=== PATIENT | male | born 1960 | race American Indian/Alaskan Native ===

== ENCOUNTER 2021-04-16 11:01 | Emergency (ER) | payer OTHER ==
[2021-04-16 13:53] LABS: Basophils % (Auto) 0.8 % (0.0-1.8); Eosinophils % (Auto) 0.8 % (0.0-4.3); Hematocrit 38.3 % (35.5-45.6); Hemoglobin 13.4 gm/dl (11.8-15.2); Lymphocytes # (Auto) 1.3 K/mm3 (1.2-5.4); Mean Corpuscular HGB Conc 35 % (32-34); Mean Corpuscular Volume 95 fl (84-94); Monocytes # (Auto) 0.4 K/mm3 (0.0-0.8); Monocytes % (Auto) 10.5 % (0.0-7.3); Platelet Count 218 K/mm3 (140-440); Red Blood Count 4.02 M/mm3 (3.65-5.03); Red Cell Distribution Width 12.5 % (13.2-15.2)
[2021-04-16 14:03] LABS: INR 0.9 (0.87-1.13); Thrombin Time 16.5 Sec. (15.1-19.6)
[2021-04-16 14:04] LABS: Partial Thromboplastin Time 33.7 Sec. (24.2-36.6)
[2021-04-16 14:22] LABS: Alanine Aminotransferase 17 units/L (7-56); Albumin 4.4 g/dL (3.9-5); BUN/Creatinine Ratio 10; Blood Urea Nitrogen 11 mg/dL (9-20); Calcium 9.7 mg/dL (8.4-10.2); Creatine Kinase MB 4.8 ng/mL (0.0-4.0); Hemolysis Index 17
--- NOTE | 2021-04-16 14:42 | Cat Scan Report ---
CT HEAD WITHOUT CONTRAST INDICATION / CLINICAL INFORMATION: Stroke symptoms. TECHNIQUE: All CT scans at this location are performed using CT dose reduction for ALARA by means of automated e xposure control. COMPARISON: None available. FINDINGS: HEMORRHAGE: No evidence of intracranial hemorrhage or extra-axial fluid collection. EXTRA-AXIAL SPACES: Cortical sulci, sylvian fissures and basilar cisterns have an unremarkable appear ance. VENTRICULAR SYSTEM: The third and lateral ventricles are of normal size and configuration. CEREBRAL PARENCHYMA: No areas of abnormal brain parenchymal attenuation are identified. There is no i ndication of recent infarction. MIDLINE SHIFT OR HERNIATION: There is no mass effect. CEREBELLUM / BRAINSTEM: Brainstem and cerebellum have an unremarkable appearance. MIDLINE STRUCTURES:No abnormalities of the pituitary gland or pineal region are identified. INTRACRANIAL VESSELS:No abnormalities are identified on this noncontrast head CT. ORBITS: visualized portions of the orbits have an unremarkable appearance. SOFT TISSUES of HEAD: No significant abnormality. CALVARIUM: Evaluation of bone windows reveals no abnormalities. PARANASAL SINUSES / MASTOID AIR CELLS: Visualized portions of the paranasal sinuses are free from inf lammatory mucosal disease. Mastoid air cells are normally pneumatized. IMPRESSION: 1. No acute intracranial abnormality identified on head CT without contrast.. Signer Name: Avila Blackman MD Signed: 04/16/2021 2:38 PM Workstation Name: [id number]
--- NOTE | 2021-04-16 15:00 | Emergency Department Report ---
ED Neuro Deficit HPI - General Chief Complaint: Neuro Symptoms/Deficit Stated Complaint: BLOOD PRESSURE/LT PAIN FACE Time Seen by Provider: 04/16/21 13:11 Source: patient Mode of arrival: Ambulatory Limitations: No Limitations - History of Present Illness Initial Comments: 61-year-old male with a past medical history of hypertension presents to the hospital complaining of numbness to the right side of his face and right arm that started at 7 PM after eating spicy food. Patient initially thought it was secondary to spicy food but symptoms persist upon waking this morning. Patient came to the ER to have be evaluated and was surprised to see his blood pressure significantly elevated. BP on arrival 240/136. Patient has a history of hypertension but stopped taking medications at least 5 years ago. He has been taking garlic for blood pressure control assuming that it was effective since he has been asymptomatic. He denies headache, chest pain, shortness of breath, slurred speech, or difficulty ambulating. Currently he complains of just pe rsistent tingling to a small portion of his right lower face and his right fingertips. - Related Data Home Medications: Previous Rx's Medication Instructions Recorded Last Taken Type NIFEdipine [Nifedipine ER] 30 mg PO DAILY #30 tab 04/16/21 Unknown Rx Allergies/Adverse Reactions: Allergies Allergy/AdvReac Type Severity Reaction Status Date / Time No Known Allergies Allergy Unverified 04/16/21 12:10 ED Review of Systems ROS: Stated complaint: BLOOD PRESSURE/LT PAIN FACE Other details as noted in HPI Comment: All other systems reviewed and negative ED Past Medical Hx - Past Medical History Hx Hypertension: Yes - Medications Home Medications: Home Medications Medication Instructions Recorded Confirmed Last Taken Type NIFEdipine [Nifedipine ER] 30 mg PO DAILY #30 tab 04/16/21 Unknown Rx ED Neuro Physical Exam - General Limitations: No Limitations Suspected Stroke: Yes - NIHSS Assessment Interval: Baseline 1a. Level of Consciousness: alert/keenly responsive 1b. LOC Questions: answers both correctly 1c. LOC Commands: performs tasks correctly 2. Best Gaze: normal 3. Visual: no visual loss 4. Facial Palsy: normal symmetrical movement 5b. Motor Arm Right: no drift 5a. Motor Arm Left: no drift 6a. Motor Leg Left: no drift 6b. Motor Leg Right: no drift 7. Limb Ataxia: absent 8. Sensory: normal 9. Best Language: no aphasia 10. Dysarthria: normal 11. Extinction/Inattention: no abnormality Total Score: 0 Stroke Severity: No Stroke Symptoms - Other Other exam information: General: No acute distress Head: Atraumatic Eyes: normal appearance ENT: Moist mucous membranes Neck: Normal appearance, no midline tenderness Chest: Clear to auscultation bilaterally CV: Regular rate and rhythm Abdomen: Soft, normal bowel sounds, nontender, nondistended, no rebound or guarding Back: Normal inspection Extremity: Normal inspection, full range of motion Neuro: Alert O x 3, no facial asymmetry, speech clear, no gross motor sensory deficit Psych: Appropriate behavior Skin: No rash ED Course Vital Signs 04/16/21 04/16/21 04/16/21 12:18 12:48 13:01 Temperature 98.4 F Pulse Rate 72 77 Respiratory 20 19 Rate Blood Pressure 215/124 Blood Pressure 240/136 [Right] O2 Sat by Pulse 100 98 99 Oximetry 04/16/21 04/16/21 04/16/21 13:15 13:31 13:45 Temperature Pulse Rate 79 77 75 Respiratory 11 L 13 9 L Rate Blood Pressure 215/124 208/114 208/114 Blood Pressure [Right] O2 Sat by Pulse 99 92 100 Oximetry 04/16/21 04/16/21 04/16/21 14:01 14:15 14:31 Temperature Pulse Rate 61 62 73 Respiratory 18 18 26 H Rate Blood Pressure 186/112 186/112 186/112 Blood Pressure [Right] O2 Sat by Pulse 100 100 100 Oximetry 04/16/21 04/16/21 04/16/21 14:45 15:00 15:17 Temperature Pulse Rate 60 65 68 Respiratory 14 18 13 Rate Blood Pressure 186/112 202/102 201/118 Blood Pressure [Right] O2 Sat by Pulse 98 98 91 Oximetry 04/16/21 04/16/21 04/16/21 15:31 15:45 16:01 Temperature Pulse Rate 61 59 L 58 L Respiratory 14 19 17 Rate Blood Pressure 196/108 202/112 190/115 Blood Pressure [Right] O2 Sat by Pulse 98 100 99 Oximetry 04/16/21 04/16/21 04/16/21 16:15 16:31 16:45 Temperature Pulse Rate 69 61 60 Respiratory 13 18 21 Rate Blood Pressure 205/118 196/110 196/110 Blood Pressure [Right] O2 Sat by Pulse 86 98 99 Oximetry 04/16/21 04/16/2104/16/22 17:01 17:15 17:31 Temperature Pulse Rate 62 67 71 Respiratory 16 19 16 Rate Blood Pressure 194/110 194/110 184/110 Blood Pressure [Right] O2 Sat by Pulse 98 97 90 Oximetry 04/16/21 04/16/21 17:45 18:01 Temperature Pulse Rate 64 63 Respiratory 18 17 Rate Blood Pressure 184/110 189/109 Blood Pressure [Right] O2 Sat by Pulse 99 98 Oximetry - Lab Data Result diagrams: 04/16/21 13:22 04/16/21 13: Lab Results 04/16/21 04/16/21 04/16/21 Range/Units 13:22 13: 13: WBC 3.9 L (4.5-11.0) K/mm3 RBC 4.02 (3.65-5.03) M/mm3 Hgb 13.4 (11.8-15.2) gm/dl Hct 38.3 (35.5-45.6) % MCV 95 H (84-94) fl MCH 33 H (28-32) pg MCHC 35 H (32-34) % RDW 12.5 L (13.2-15.2) % Plt Count 218 (140-440) K/mm3 Lymph % (Auto) 33.0 (13.4-35.0) % [place] % (Auto) 10.5 H (0.0-7.3) % Eos % (Auto) 0.8 (0.0-4.3) % Baso % (Auto) 0.8 (0.0-1.8) % Lymph # (Auto) 1.3 (1.2-5.4) K/mm3 [place] # (Auto) 0.4 (0.0-0.8) K/mm3 Eos # (Auto) 0.0 (0.0-0.4) K/mm3 Baso # (Auto) 0.0 (0.0-0.1) K/mm3 Seg Neutrophils % 54.9 (40.0-70.0) % Seg Neutrophils # 2.2 (1.8-7.7) K/mm3 PT 13.1 (12.2-14.9) Sec. INR 0.90 (0.87-1.13) APTT 33.7 (24.2-36.6) Sec. Thrombin Time 16.5 (15.1-19.6) Sec. Sodium (137-145) mmol/L Potassium (3.6-5.0) mmol/L Chloride (98-107) mmol/L Carbon Dioxide (22-30) mmol/L Anion Gap mmol/L BUN (9-20) mg/dL Creatinine (0.8-1.3) mg/dL Estimated GFR ml/min BUN/Creatinine Ratio % Glucose (75-100) mg/dL Calcium (8.4-10.2) mg/dL Magnesium (1.7-2.3) mg/dL Total Bilirubin (0.1-1.2) mg/dL AST (5-40) units/L ALT (7-56) units/L Alkaline Phosphatase (35-129) units/L Total Creatine Kinase 378 H (55-170) units/L CK-MB (CK-2) 4.8 H (0.0-4.0) ng/mL CK-MB (CK-2) Rel Index 1.2 (0-4) Troponin T < 0.010 (0.00-0.029) ng/mL Total Protein (6.3-8.2) g/dL Albumin (3.9-5) g/dL Albumin/Globulin Ratio % 03/03/22 Range/Units 13:22 WBC (4.5-11.0) K/mm3 RBC (3.65-5.03) M/mm3 Hgb (11.8-15.2) gm/dl Hct (35.5-45.6) % MCV (84-94) fl MCH (28-32) pg MCHC (32-34) % RDW (13.2-15.2) % Plt Count (140-440) K/mm3 Lymph % (Auto) (13.4-35.0) % [place] % (Auto) (0.0-7.3) % Eos % (Auto) (0.0-4.3) % Baso % (Auto) (0.0-1.8) % Lymph # (Auto) (1.2-5.4) K/mm3 [place] # (Auto) (0.0-0.8) K/mm3 Eos # (Auto) (0.0-0.4) K/mm3 Baso # (Auto) (0.0-0.1) K/mm3 Seg Neutrophils % (40.0-70.0) % Seg Neutrophils # (1.8-7.7) K/mm3 PT (12.2-14.9) Sec. INR (0.87-1.13) APTT (24.2-36.6) Sec. Thrombin Time (15.1-19.6) Sec. Sodium 139 (137-145) mmol/L Potassium 4.7 (3.6-5.0) mmol/L Chloride 101.8 (98-107) mmol/L Carbon Dioxide 27 (22-30) mmol/L Anion Gap 15 mmol/L BUN 11 (9-20) mg/dL Creatinine 1.1 (0.8-1.3) mg/dL Estimated GFR > 60 ml/min BUN/Creatinine Ratio 10 % Glucose 88 (75-100) mg/dL Calcium 9.7 (8.4-10.2) mg/dL Magnesium 2.10 (1.7-2.3) mg/dL Total Bilirubin 0.50 (0.1-1.2) mg/dL AST 24 (5-40) units/L ALT 17 (7-56) units/L Alkaline Phosphatase 54 (35-129) units/L Total Creatine Kinase 378 H (55-170) units/L CK-MB (CK-2) 4.8 H (0.0-4.0) ng/mL CK-MB (CK-2) Rel Index (0-4) Troponin T < 0.010 (0.00-0.029) ng/mL Total Protein 7.7 (6.3-8.2) g/dL Albumin 4.4 (3.9-5) g/dL Albumin/Globulin Ratio 1.3 % - EKG Data -: EKG Interpreted by Or EKG shows normal: sinus rhythm, ST-T waves (Lateral T wave inversion, LVH) Rate: normal - Radiology Data Radiology results: report reviewed CT HEAD WITHOUT CONTRAST INDICATION / CLINICAL INFORMATION: Stroke symptoms. TECHNIQUE: All CT scans at this location are performed using CT dose reduction for ALARA by means of automated exposure control. COMPARISON: None available. FINDINGS: HEMORRHAGE: No evidence of intracranial hemorrhage or extra-axial fluid collection. EXTRA-AXIAL SPACES: Cortical sulci, sylvian fissures and basilar cisterns have an unremarkable appearance. VENTRICULAR SYSTEM: The third and lateral ventricles are of normal size and configuration. CEREBRAL PARENCHYMA: No areas of abnormal brain parenchymal attenuation are identified. There is no indication of recent infarction. MIDLINE SHIFT OR HERNIATION: There is no mass effect. CEREBELLUM / BRAINSTEM: Brainstem and cerebellum have an unremarkable appearance. MIDLINE STRUCTURES:No abnormalities of the pituitary gland or pineal region are identified. INTRACRANIAL VESSELS:No abnormalities are identified on this noncontrast head CT. ORBITS: visualized portions of the orbits have an unremarkable appearance. SOFT TISSUES of HEAD: No significant abnormality. CALVARIUM: Evaluation of bone windows reveals no abnormalities. PARANASAL SINUSES / MASTOID AIR CELLS: Visualized portions of the paranasal sinuses are free from inflammatory mucosal disease. Mastoid air cells are normally pneumatized. IMPRESSION: 1. No acute intracranial abnormality identified on head CT without contrast.. - Medical Decision Making 61-year-old male presents to the hospital with significantly elevated hypertension and symptoms of paresthesias to his finger right lower right fingers upon ED arrival. Patient did not have any focal neurologic findings on examination. His CT head was unremarkable, labs unremarkable, and did not endorse chest pain or shortness of breath. Initial BP 240/136 with improvement to 189/109 with ED treatment of IV and p.o. medication. Pt MAP of 170 was decreased to 123 which is a 28% decrease (within the recommended 25-30% r eduction in the first few hours). Norvasc provided prior to discharge and patient will be discharged on nifedipine daily with recommendation for close outpatient follow-up Critical Care Time: No Critical care attestation.: If time is entered above; I have spent that time in minutes in the direct care of this critically ill patient, excluding procedure time. ED Disposition Clinical Impression: Uncontrolled hypertension, Paresthesia Disposition: 01 HOME / SELF CARE / HOMELESS Is pt being admited?: No Does the pt Need Aspirin: No Condition: Stable Instructions: Paresthesia, Hypertension, Adult, Hypertension (ED) Additional Instructions: Is very important that you take the medication as prescribed, continue to monitor your blood pressure, and check it at least twice a day. Document these results to presented to your doctor upon follow-up within 3 to 5 days. You may follow-up with your primary care doctor or the doctor prescribed. Pleas e return if symptoms worsen as described on your discharge instructions. Prescriptions: NIFEdipine [Nifedipine ER] 30 mg PO DAILY #30 tab Referrals: EUNICE CROW [Other] - 3-5 Days Time of Disposition: 18:43
[2021-04-16] MEDS ORDERED: cloNIDine 0.1 MG TAB PO ONE (15:53)
[2021-04-16 16:28] LABS: Creatine Kinase MB 4.8 ng/mL (0.0-4.0)
[2021-04-16] MEDS ORDERED: hydrALAZINE 20 MG/1 ML INJ IV ONE (17:43)
[2021-04-16 18:09] VITALS: BP 189/109
[2021-04-16] MEDS ORDERED: amLODIPine 5 MG TAB PO ONE (18:42)
--- NOTE | 2021-04-17 17:34 | Electrocardiograph Report ---
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
== END 2021-04-16 19:42 | disposition home or self-care (01) ==
LOC: ED 11:01
DX: I10 Essential (primary) hypertension (principal); R20.2 Paresthesia of skin
CPT/HCPCS: 36415; 70450; 80053; 82550; 82553; 83735; 84484; 85025; 85610; 85670; 85730; 93005; 93010; 96374; 96375; 99284; J0360; J3490